=== PATIENT | male | born 1980 | race Caucasian/White ===

== ENCOUNTER 2019-06-30 00:21 | Emergency (ER) | payer OTHER ==
[2019-06-30 00:51] LABS: BASOPHILS % (AUTO) 0.6 %; EOSINOPHILS # (AUTO) 0.1 10^3/uL (0.0-0.7); HGB - HEMOGLOBIN 15.6 g/dL (14.0-18.0); LYMPHOCYTES # (AUTO) 2.7 10^3/uL (1.5-3.5); LYMPHOCYTES % (AUTO) 39.4 %; MEAN CORPUSCULAR HEMOGLOBIN 28.9 pg (27.0-31.0); MEAN CORPUSCULAR HGB CONC 34.2 g/dL (32.0-36.0); MEAN CORPUSCULAR VOLUME 84.4 fL (80.0-94.0); MEAN PLATELET VOLUME 11.9 fL (7.4-11.4); MONOCYTES # (AUTO) 0.5 10^3/uL (0.0-1.0); MONOCYTES % (AUTO) 6.8 %; NEUTROPHILS # (AUTO) 3.6 10^3/uL (1.5-6.6); NEUTROPHILS % (AUTO) 51.9 %; PLT - PLATELET COUNT 179 10^3/uL (130-450); RED CELL DISTRIBUTION WIDTH 12.4 % (12.0-15.0); WHITE BLOOD COUNT 6.9 x10^3/uL (4.8-10.8)
[2019-06-30 01:04] LABS: ALBUMIN 4.8 g/dL (3.2-5.5); ALBUMIN/GLOBULIN RATIO 1.8 (1.0-2.2); BILIRUBIN,TOTAL 1.5 mg/dL (0.2-1.0); CALCIUM 9.7 mg/dL (8.5-10.3); CREATININE 1.1 mg/dL (0.6-1.2); TOTAL PROTEIN 7.5 g/dL (6.7-8.2)
--- NOTE | 2019-06-30 01:06 | XRAY Report ---
Reason: chest heaviness SOA Procedure Date: 06/30/2019 Accession Number: [id number] / [id number] Procedure: XR - Chest 1 View X-Ray CPT Code: 69149 FULL RESULT: EXAM: CHEST RADIOGRAPHY EXAM DATE: 06/30/2019 12:53 AM. CLINICAL HISTORY: Chest heaviness SOA. COMPARISON: None. TECHNIQUE: 1 view. FINDINGS: Lungs/Pleura: No focal opacities evident. No pleural effusion. No pneumothorax. Mediastinum: Within exam limitations, the cardiomediastinal contour is normal. Other: None. IMPRESSION: Normal single view chest. RADIA
--- NOTE | 2019-06-30 01:12 | ED Physician Documentation ---
PD HPI CHEST PAIN - Stated complaint Stated Complaint: SOA, CHILLS/SWEATS - Chief complaint Chief Complaint: Resp - History obtained from History obtained from: Patient - History of Present Illness Timing - onset: How many days ago (3-4) Timing - duration: Days Timing - details: Gradual onset, Intermittant, Waxing and waning Pain level max: 2 Pain level now: 0 Quality: Pressure (intermittent pressure sensation midline low chest) Radiation: No: Jaw, Neck, Back, Abdominal, Left upper extremity, Right upper extremity Associated symptoms: Shortness of air Similar symptoms before: Has not had sx before Recently seen: Not recently seen - Additional information Additional information: chief c/o of dyspnea, feels like he cant take a full, deep, satisfying breath. Review of Systems Constitutional: reports: Reviewed and negative Cardiac: reports: Chest pain / pressure. denies: Palpitations, Pedal edema, Calf pain Respiratory: reports: Dyspnea. denies: Cough, Wheezing GI: reports: Reviewed and negative PD PAST MEDICAL HISTORY - Past Medical History Past Medical History: Yes - Past Surgical History Past Surgical History: Yes Ortho: Spine surgery, Other HEENT: Rhinoplasty - Present Medications Home Medications: Ambulatory Orders Medication Instructions Recorded Confirmed LORazepam [Lorazepam] 0.5 mg PO TID PRN #20 tablet 06/30/19 - Allergies Allergies/Adverse Reactions: Allergies Allergy/AdvReac Type Severity Reaction Status Date / Time vancomycin Allergy Anaphylaxis Verified 06/30/19 00:44 - Social History Does the pt smoke?: No Smoking Status: Never smoker Does the pt drink ETOH?: No - Immunizations Immunizations are current?: Yes - POLST Patient has POLST: No PD ED PE NORMAL - Vitals Vital signs reviewed: Yes - General General: Alert and oriented X 3, No acute distress, Well developed/nourished - Neck Neck: Supple, no meningeal sign - Cardiac Cardiac: RRR, No murmur - Respiratory Respiratory: No respiratory distress, Clear bilaterally - Abdomen Abdomen: Soft, Non tender - Derm Derm: Normal color, Warm and dry - Extremities Extremities: No edema Results - Vitals Vitals: Oxygen O2 Source Room air - EKG (time done) No standard instances Rate: Rate (enter#) (80) Rhythm: NSR [place]: Normal Intervals: Normal MT QRS: Normal Ischemia: Normal ST segments - Labs Labs: Laboratory Tests 06/30/19 06/30/19 06/30/19 00:40 00:40 00:40 WBC 6.9 RBC 5.40 Hgb 15.6 Hct 45.6 MCV 84.4 MCH 28.9 MCHC 34.2 RDW 12.4 Plt Count 179 MPV 11.9 H Neut # (Auto) 3.6 Lymph # (Auto) 2.7 [place] # (Auto) 0.5 Eos # (Auto) 0.1 Baso # (Auto) 0.0 Absolute Nucleated RBC 0.00 Nucleated RBC % 0.0 D-Dimer Sodium 144 Potassium 3.1 L Chloride 105 Carbon Dioxide 27 Anion Gap 12.0 BUN 22 H Creatinine 1.1 Estimated GFR (MDRD) 74 L Glucose 126 H Calcium 9.7 Total Bilirubin 1.5 H AST 20 ALT 13 Alkaline Phosphatase 42 Troponin I High Sens < 2.3 L Total Protein 7.5 Albumin 4.8 Globulin 2.7 Albumin/Globulin Ratio 1.8 Lipase 63 H 06/30/19 01:45 WBC RBC Hgb Hct MCV MCH MCHC RDW Plt Count MPV Neut # (Auto) Lymph # (Auto) [place] # (Auto) Eos # (Auto) Baso # (Auto) Absolute Nucleated RBC Nucleated RBC % D-Dimer < 200.0 L Sodium Potassium Chloride Carbon Dioxide Anion Gap BUN Creatinine Estimated GFR (MDRD) Glucose Calcium Total Bilirubin AST ALT Alkaline Phosphatase Troponin I High Sens Total Protein Albumin Globulin Albumin/Globulin Ratio Lipase - Rads (name of study) chest xray Radiology: Prelim report reviewed, See rad report PD MEDICAL DECISION MAKING - ED course Complexity details: reviewed results, re-evaluated patient, considered differential, d/w patient Departure - Departure Disposition: 01 Home, Self Care Clinical Impression: Dyspnea Condition: Good Instructions: ED Dyspnea Shortness of Breath Follow-Up: Sherman Rahman DO [Primary Care Provider] - Prescriptions: LORazepam [Lorazepam] 0.5 mg PO TID PRN #20 tablet PRN Reason: Anxiety Discharge Date/Time: 06/30/19 04:10
[2019-06-30] MEDS ORDERED: LORazepam 2 MG/ML VIAL IVP STA ×2 (01:30→03:42)
[2019-06-30] MEDS ORDERED: POTASSIUM CHLORIDE 20 MEQ TABLET PO STA (04:01)
[2019-06-30 04:03] VITALS: BP 106/66
== END 2019-06-30 04:10 | disposition home or self-care (01) ==
LOC: ED 00:21
DX: R06.00 Dyspnea, unspecified (principal)
CPT/HCPCS: 36415; 71045; 80053; 83690; 84484; 85025; 85379; 93005; 96374; 96376; 99284; A9270; J2060

== ENCOUNTER 2019-07-14 09:05 | Outpatient (CLI) | payer OTHER ==
[2019-07-14] MEDS ORDERED: ALBUTEROL NEB 2.5 MG/3 ML INH SCH (09:21)
== END 2019-07-14 09:06 | disposition home or self-care (01) ==
LOC: RT 09:05
PROVIDERS: ATTEND Physician Assistant Medical
DX: R06.00 Dyspnea, unspecified (principal)
CPT/HCPCS: 94010

== ENCOUNTER 2021-01-17 06:58 | Outpatient (CLI) | payer OTHER ==
--- NOTE | 2021-01-17 16:00 | Ultrasound Report ---
PROCEDURE: Abdomen Complete INDICATIONS: EPIGASTRIC PAIN, NAUSEA TECHNIQUE: Real-time scanning was performed of the abdominal and retroperitoneal organs, with image documentatio n. COMPARISON: None. FINDINGS: Liver: Liver is normal in size and homogeneous in echotexture. Gallbladder: Normally distended without wall thickening, para cholecystic fluid, sludge, or gallstone .. Biliary ducts: Intrahepatic bile ducts are non-dilated. Extrahepatic bile duct caliber measures 3 m m. Normal is 6-7 mm or less in diameter, or 10 mm or less post-cholecystectomy. Pancreas: Visualized portions of the pancreas are sonographically normal. Spleen: Spleen is normal in size and homogeneous in echotexture. Kidneys: Kidneys are normal in size and echotexture. Right kidney measures 9.6 cm long; left kidney measures 9.6 cm long. No hydronephrosis or nephrolithiasis. No solid masses. Aorta: Visualized aorta is normal in caliber at less than 3 cm. Iliacs: Proximal common iliac arteries are normal in caliber at less than 2.5 cm. IVC: Intrahepatic inferior vena cava is patent. Miscellaneous: No free abdominal fluid. IMPRESSION: Normal exam. Reviewed by: Ted Wright MD on 01/17/2021 3:59 PM PDT Approved by: Ted Wright MD on 01/17/2021 3:59 PM PDT Station ID: [id number]
== END 2021-01-17 06:59 | disposition home or self-care (01) ==
LOC: DI 06:58
PROVIDERS: ATTEND Physician Assistant
DX: R10.13 Epigastric pain (principal); R11.0 Nausea

== ENCOUNTER 2022-11-22 16:34 | Emergency (ER) | payer BC, OTHER ==
[2022-11-22 16:41] VITALS: BP 131/89
[2022-11-22] MEDS ORDERED: TETANUS/DIPHTHERIA/PERTUSSIS 0.5 ML SYRINGE IM ONE (17:10)
--- NOTE | 2022-11-22 17:51 | ED Physician Documentation ---
PD HPI UPPER EXT INJURY - Stated complaint Stated Complaint: LT FINGER LAC - Chief complaint Chief Complaint: Laceration - History obtained from History obtained from: Patient - Additonal information Additional information: Patient is a 42-year-old male Presenting for evaluation of laceration to his le ft index finger that occurred just prior to arrival on a chisel as he was making a wood cribbage board. He does not take a blood thinner. He is due for a tetanus this year. He denies pain or injuries elsewhere. Review of Systems Constitutional: denies: Fever Cardiac: denies: Chest pain / pressure Respiratory: denies: Dyspnea GI: denies: Abdominal Pain Skin: reports: Laceration (s) PD PAST MEDICAL HISTORY - Past Surgical History Past Surgical History: Yes Ortho: Spine surgery, Other HEENT: Rhinoplasty - Present Medications Home Medications: Ambulatory Orders Medication Instructions Recorded Confirmed LORazepam [Lorazepam] 0.5 mg PO TID PRN #20 tablet 06/30/19 - Allergies Allergies/Adverse Reactions: Allergies Allergy/AdvReac Type Severity Reaction Status Date / Time vancomycin Allergy Anaphylaxis Verified 11/22/22 16:41 - Social History Does the pt smoke?: No Smoking Status: Never smoker Does the pt drink ETOH?: No - Immunizations Immunizations are current?: Yes - POLST Patient has POLST: No PD ED PE NORMAL - General General: Alert and oriented X 3, No acute distress, Well developed/nourished - HEENT HEENT: Atraumatic - Neck Neck: Supple, no meningeal sign - Cardiac Cardiac: Strong equal pulses - Respiratory Respiratory: No respiratory distress - Extremities Extremities: Other (1 and half centimeter laceration to DISTAL left index finger; Normal range of motion at all joints, brisk cap refill, no signs of tendon injury, Sensation intact) PD ED PE EXPANDED - Extremities KARELY UE/Hands Visual: 1 - laceration Results - Vitals Vitals: Vital Signs - 24 hr 11/22/22 16:38 Temperature 36.0 C L Heart Rate 68 Respiratory 16 Rate Blood Pressure 131/89 H O2 Saturation 100 Oxygen O2 Source Room air Procedures - Laceration (location) L index Length in cm: 2 Wound type: Curved, Clean Neurovascular status: Sensory intact, Motor intact, Vascular intact Tendon involvement: Tendon intact Anesthesia: Lidocaine 1% Wound preparation: Hibiclens, Irrigated copiously NS Skin layer closure: Size #-0 - enter number (4), Sutures - enter # (6) Other: Patient tolerated well, No complications, Neurovascular intact, Dressing applied, Tetanus booster given PD Medical Decision Making - ED course ED course: Pt with laceration to L index finger. No signs of tendon injury. N/V intact. No signs of Foreign body. Wound cleaned and closed with sutures. No indications for antibiotics. Tetanus booster given. Pt counseled on wound care instructions, need for suture removal and concerning symptoms to return for. Departure - Departure Disposition: 01 Home, Self Care Clinical Impression: Laceration of left index finger Condition: Stable Instructions: ED Laceration Hand Comments: You have a laceration to your left index finger that was closed with six stitches. I would recommend keeping the stitches in for the next 7 to 10 days (Nov 5- 8). You can return to the emergency department or to a walk-in clinic to have the sutures removed. Please make sure to keep the wound clean and dry. You can use a finger splint to help prevent Movement of the finger while the wound heals. If you have any new or worsening symptoms please consider return to the emergency department. You were given a tetanus booster today. Discharge Date/Time: 11/22/22 18:01
== END 2022-11-22 18:01 | disposition home or self-care (01) ==
LOC: ED 16:34
DX: S61.211A Laceration without foreign body of left index finger without damage to nail, initial encounter (principal); W27.8XXA Contact with other nonpowered hand tool, initial encounter; Z23 Encounter for immunization; Z71.85 Encounter for immunization safety counseling
CPT/HCPCS: 12001; 90471; 99283